=== PATIENT | male | born 1995 | race African-American/Black ===

== ENCOUNTER 2018-05-17 13:25 | Emergency (ER) | payer MEDICAID ==
[~2018-05-17] VITALS: Ht 185.4 cm; Wt 76.0 kg
[2018-05-17] MEDS ORDERED: ACET-2178 PO (13:35)
[2018-05-17] MEDS ORDERED: DIAZEPAM 2 MG TABLET PO ONE (14:30)
[2018-05-17] MEDS ORDERED: KETOROLAC 60MG/2ML VIAL IM ONE (14:30)
[2018-05-17] MEDS ORDERED: DEXAMETHASONE 10 MG/ML VIAL IM ONE (14:30)
[2018-05-17 16:40] LABS: CLARITY URINE CLEAR (CLEAR); COLOR URINE DARK YELLOW (YELLOW); KETONES URINE TRACE (NEGATIVE); LEUKOCYTE ESTERASE URINE NEGATIVE (NEGATIVE); NITRITE URINE NEGATIVE (NEGATIVE); OCCULT BLOOD URINE NEGATIVE (NEGATIVE); PROTEIN URINE 1+ (NEGATIVE); SPECIFIC GRAVITY URINE 1.024 (1.005-1.030)
[2018-05-17 18:00] VITALS: BP 101/85
== END 2018-05-17 18:15 | disposition home or self-care (01) ==
LOC: ER 14:19
DX: M54.5 Low back pain (principal); R80.9 Proteinuria, unspecified; F17.200 Nicotine dependence, unspecified, uncomplicated; Z88.2 Allergy status to sulfonamides
CPT/HCPCS: 81003; 96372; 99284; J1100; J1885; Z7610